=== PATIENT | male | born 1990 | race Caucasian/White ===

== ENCOUNTER 2021-10-26 14:08 | Emergency (ER) | payer OTHER, SELFPAY ==
[2021-10-26 14:18] VITALS: BP 135/81; PULSE 71; RESP 16; TEMP 36.6; O2SAT 99
[2021-10-26 14:19] VITALS: BP 135/81; PULSE 71; RESP 16; TEMP 36.6; O2SAT 99
--- NOTE | 2021-10-26 14:35 | ED.URI ---
HPI - URI/Sore Throat General Chief Complaint: Upper Respiratory Infection Stated Complaint: Rt Eye Irritation,Congestion,Cough,Headache Time Seen by Provider: 10/26/21 14:35 Source: patient Mode of arrival: ambulatory Limitations: no limitations History of Present Illness HPI Narrative: Hemal Moreno is a 31 yo male with no PMH who comes complaining of sinus drainage for 2 to 3 days his vital signs are stable and he is afebrile. He states he has dark green mucous, that he gets this once a month, and usually gets antibiotics from his primary care physician; he is going to an ENT soon; he also is complaining of right eye discharge with thick goopy discharge states is girlfriend's children had pinkeye Related Data Home Medications Medication Instructions Recorded Confirmed azelastine 2 spray INTRANASAL PRN PRN 10/26/21 10/26/21 Allergies Allergy/AdvReac Type Severity Reaction Status Date / Time amoxicillin AdvReac Mild Hives Verified 10/26/21 14:29 Review of Systems Review of Systems: CONSTITUTIONAL: Denies fever, chills, sweats. Subjective report of symptoms of congestion,eye discharge and sinus drainage EYES: Denies visual changes, redness, R discharge. ENT: Denies rhinorrhea,states has had sinus congestion w discharge, sore throat, otalgia. CARDIOVASCULAR: Denies chest pain, palpitations, edema. RESPIRATORY: Denies dyspnea, wheezing, cough GASTROINTESTINAL: Denies abdominal pain, nausea, vomiting, diarrhea. GENITOURINARY: Denies dysuria, hematuria, abnormal discharge SKIN: Denies rash or itching. NEUROLOGIC: Denies numbness, or focal weakness. PSYCHIATRIC: Denies anxiety or depression. PMFSH Past Medical History Medical History No acute medical problems Social History Social History (Updated 10/26/21 @ 14:43 by Claudia Garcia CNP) Smoking status: Never smoker Alcohol intake: current Comments At time of signature, I agree with nursing past medical, surgical, social and family history. There is no relevant family history pertinent to the presenting complaint. Exam Narrative: GENERAL: This is a well-nourished, well-developed patient, in no distress. HEAD: normocephalic, atraumatic. EYES: Sclera clear/white. Vision is grossly intact. No injection of conjunctiva on left or right EARS: External ears normal, auditory canals clear and without drainage, TMs normal without perforation. Hearing grossly intact. NOSE: External nose normal without nasal discharge, nares without redness, no rhinorrhea. THROAT: Mucous membranes moist, posterior pharynx pink with clear drainage NECK: Neck supple, non-tender CARDIOVASCULAR: Regular rate and rhythm without murmurs, gallops, or rubs. RESPIRATORY: Clear to auscultation. Breath sounds equal bilaterally. No wheezes, rales, or rhonchi. GASTROINTESTINAL: Not done SKIN: warm, intact with no suspicious lesions or rash, good texture and turgor. NEURO: awake, alert, and oriented to person, place and time. There were no obvious focal neurologic abnormalities. Steady gait EXTREMITIES: Normal range of motion. BACK: No complaints of pain Course Course Emergency Course: Patient comes with complaints of sinus drainage x2 to 3 days and eye drainage this morning that he states his eye was glued shut Patient's eyes are clear with no injection bone is on his aches insistence given antibiotic eyedrops Given steroids and told to start on Zyrtec or Tati [id number] patient wants antibiotics given that he has no objective symptoms, no fever, I opted to only treat as viral origin Level of Care: Express Care Visit Vital Signs Vital signs: Vital Signs Temperature 97.8 F 10/26/21 14:18 Pulse Rate 71 10/26/21 14:18 Respiratory Rate 16 10/26/21 14:18 Blood Pressure 135/81 10/26/21 14:18 Pulse Oximetry 99 10/26/21 14:18 Temperature 97.8 F 10/26/21 14:19 Pulse Rate 71 10/26/21 14:19 Respiratory Rate 16
== END 2021-10-26 14:52 | disposition home or self-care (01) ==
PROVIDERS: Emergency Provider Nurse Practitioner; PCP Physician Assistant
DX: J01.10 Acute frontal sinusitis, unspecified (principal); H10.9 Unspecified conjunctivitis; Z86.16 Personal history of COVID-19
CPT/HCPCS: 99203; G0463

== ENCOUNTER 2022-09-29 13:56 | Outpatient (CLI) | payer OTHER, SELFPAY ==
--- NOTE | 2022-09-29 | ECHO_ITS ---
Patient Info Name: Hemal Moreno Age: 32 years : 1990 Gender: Male Ht: 70 in Wt: 195 lbs BSA: 2.11 m2 HR: 75 bpm BP: 136 / 92 mmHg Heart Rhythm: Sinus Rhythm Exam Date: 09/29/2022 2:13 PM Exam Location: [facility] Patient Status: Outpatient Admit Date: 09/29/2022 Staff Ordering Physician: MatildeLamar PA-C Bandoleer Packer: Mitesh Galo, EDY, RT Attending Provider: GlenLamar PA-C Exam Type: CA echo doppler color flow Study Info Indications - MCKEON R06.09 - Other forms of dyspnea Complete two-dimensional, color flow and Doppler transthoracic echocardiogram is performed. Strain analysis performed. Summary 1. Complete two-dimensional, color flow and Doppler transthoracic echocardiogram is performed. 2. Left ventricular chamber dimension is normal. 3. Left ventricular systolic function is normal, estimated at 60-65%. 4. There is mildly increased left ventricular wall thickness. 5. The left ventricular diastolic function is grade I diastolic dysfunction. 6. Global longitudinal strain is normal at -20 %. 7. Right ventricular chamber dimension is mildly enlarged. 8. Right ventricular systolic function is normal. 9. Right atrial chamber dimension is mildly enlarged. 10. The mitral valve annulus is moderately calcified. 11. There is trace mitral valve regurgitation. 12. There is trace tricuspid valve regurgitation. 13. There is trace pulmonic regurgitation. Left Ventricle Left ventricular chamber dimension is normal. Left ventricular systolic function is normal, estimated at 60-65%. There is mildly increased left ventricular wall thickness. The left ventricular diastolic function is grade I diastolic dysfunction. Global longitudinal strain is normal at -20 %. Right Ventricle Right ventricular chamber dimension is mildly enlarged. Right ventricular systolic function is normal. Left Atria Left atrial chamber dimension is normal. Right Atria Right atrial chamber dimension is mildly enlarged. Atrial Septum Intact interatrial septum visualized by color flow imaging. Aortic Valve The aortic valve is trileaflet. There is no aortic valve stenosis. There is no aortic valve regurgitation. Pulmonic Valve The pulmonic valve is not well visualized. There is trace pulmonic regurgitation. Mitral Valve The mitral valve has normal leaflets. There is no mitral valve stenosis. There is trace mitral valve regurgitation. The mitral valve annulus is moderately calcified. Tricuspid Valve There is trace tricuspid valve regurgitation. Pericardium/Pleural The pericardium appears normal. Aorta The aortic root size at the sinus of Valsalva is normal. Left Ventricular Outflow Tract Name Value Normal LVOT 2D LVOT Diameter 2.0 cm LVOT Doppler LVOT Peak Gradient 4 mmHg LVOT Mean Gradient 2 mmHg LVOT VTI 20 cm LVOT VTI/AV VTI Ratio 0.8 LVOT Stroke Volume 64 ml LVOT CO 4.5 l/min
== END 2022-09-29 13:57 | disposition home or self-care (01) ==
PROVIDERS: PCP Physician Assistant; Visit Provider Physician Assistant
DX: R06.09 Other forms of dyspnea (principal); I51.7 Cardiomegaly
CPT/HCPCS: 93306

== ENCOUNTER 2024-05-04 09:32 | Day surgery (SDC) | payer OTHER, SELFPAY ==
[2024-03-25 14:39] VITALS: BMI 28.8
[2024-04-12 08:19] VITALS: BMI 28.8
[2024-04-20 11:07] VITALS: BMI 28.8
--- NOTE | 2024-05-04 07:01 | WPDANESEPPF ---
Anes - Initial Pre Proc Eval Procedure: Operation Date: 05/04/24 11:30 Proposed Procedures p Diagnostic Colonoscopy - Anthony Lentz MD Date/Time: 05/04/24 07:01 Surgeon: Anthony Lentz MD Pre Op Diagnosis: Blood in Stool Patient Data Age: 34 Gender: M Height: 1.78 m Weight: 91 kg Allergies Allergy/AdvReac Type Severity Reaction Status Date / Time amoxicillin AdvReac Mild Hives Verified 05/04/24 10:22 Home Medications Medication Instructions Recorded Confirmed Type Adult One Daily Multivitamin 1 tab-cap PO DAILY 04/12/24 05/04/24 History clomiphene citrate 550 mg PO EVERY OTHER DAY 04/12/24 05/04/24 History montelukast 10 mg tablet 10 mg PO DAILY 04/12/24 05/04/24 History semaglutide (weight loss) 1 mg/0.5 mg subcut 04/20/24 History mL subcutaneous pen injector (Wegovy) Patient hx anesthesia problems: none Family hx anesthesia problems: none Results Review: All pre-operative results and documents have been reviewed as part of the pre-operative evaluation. [facility] Past Medical History Medical History No acute medical problems Social History Social History (Updated 10/26/21 @ 14:43 by Claudia Garcia, MARIBETH) Smoking status: Never smoker Alcohol intake: current Alcohol use details: rarely Substance use: never Substance use type: does not use Living arrangements: with family Spiritual care concerns: No Anes - Eval Final PreProcedure Day of Procedure 05/04/24 07:01 Patient weight: overweight Heart: regular rate and rhythm Lungs: clear to auscultation Airway: Mallampati scale class II Neurological: alert and oriented Last oral intake: >/= 8 hours ASA classification: I Emergent: no Anesthetic plan: proceed Anesthesia type and monitoring: general GIVS and standard monitoring Results Review: All pre-operative results and documents have been reviewed as part of the pre-operative evaluation. Informed Consent: The patient's anesthetic plan and its attendant risks and benefits were discussed with the patient/family/POA. Questions were solicited and answers provided to the satisfaction of the patient/family/POA.
[2024-05-04] MEDS: LACTATED RINGERS 1,000 ML 150 ML IV CONT (10:33)
[2024-05-04 10:36] VITALS: BP 122/73; PULSE 74; RESP 18; TEMP 36.8; O2SAT 100
--- NOTE | 2024-05-04 10:54 | PM.HPGS ---
History of Present Illness History of Present Illness Consent: Risks, benefits, and alternatives have been discussed and questions answered. Patient agrees to proceed with procedure. Chief complaint: Blood in Stool Narrative: Hemal Moreno is a 34 year old male presents for colonoscopy. Patient has noticed tendency towards constipation. This has been most noticeable after over the last year to year and a half. Patient has noticed bright red blood per rectum. This intensified when he strains and has harder stools. Is any weight loss. His family history is noncontributory. Bleeding however has been intermittent and persistent over the last 1 year. Review of Systems Review of Systems: All systems reviewed & are unremarkable except as noted in HPI and below PMFSH Past Medical History Medical History No acute medical problems Social History Social History (Updated 10/26/21 @ 14:43 by Claudia Garcia, MARIBETH) Smoking status: Never smoker Alcohol intake: current Alcohol use details: rarely Substance use: never Substance use type: does not use Living arrangements: with family Spiritual care concerns: No Meds Home Medications and Allergies Home Medications Medication Instructions Recorded Confirmed Type Adult One Daily Multivitamin 1 tab-cap PO DAILY 04/12/24 05/04/24 History clomiphene citrate 550 mg PO EVERY OTHER DAY 04/12/24 05/04/24 History montelukast 10 mg tablet 10 mg PO DAILY 04/12/24 05/04/24 History semaglutide (weight loss) 1 mg/0.5 mg subcut 04/20/24 History mL subcutaneous pen injector (Wegovy) Allergies Allergy/AdvReac Type Severity Reaction Status Date / Time amoxicillin AdvReac Mild Hives Verified 05/04/24 10:22 Vital Signs Vital Signs - 24 hr 05/04/24 10:36 Temperature 98.2 F Pulse Rate 74 Respiratory Rate 18 Blood Pressure 122/73 Pulse Oximetry 100 Oxygen Delivery Room Air Exam Narrative: Physical exam reveals patient to be alert. Vital signs stable. HEENT exam is unremarkable. Patient is anicteric. Lungs are clear to auscultation and percussion without murmur or extra sounds. Abdomen bowel sounds are present soft nontender with no organomegaly. Digital external rectal exam normal. Assessment and Plan Assessment and plan (1) Blood in stool: Code(s): K92.1 - Melena Status: Acute Assessment and Plan: Patient with ongoing intermittent bright red blood per rectum. Plan for stool softeners. Evaluation with colonoscopy today. Further recommendations may be given after endoscopy. (2) Constipation: Code(s): K59.00 - Constipation, unspecified Status: Acute Assessment and Plan: Patient is ongoing constipation. This may be related to medications. Suggest stool softener such as Colace or Metamucil. Consider MiraLax as needed to control bowel habits.
[2024-05-04 11:16] VITALS: BP 99/60; PULSE 67; RESP 18; O2SAT 98
[2024-05-04 11:26] VITALS: BP 103/61; PULSE 61; RESP 16; O2SAT 99
[2024-05-04 11:36] VITALS: BP 105/62; PULSE 63; RESP 16; O2SAT 100
--- NOTE | 2024-05-04 12:33 | WPDANESPN ---
Anes - Prog Note Post-Op Date/Time: 05/04/24 12:33 Cardiovascular status: normal Respiratory status: normal Airway patency: baseline Mental status: baseline Post-Op hydration status: normal Vital Signs: Last Vital Signs Temp 36.8 C 05/04/24 10:36 Pulse 63 05/04/24 11:36 Resp 16 05/04/24 11:36 BP 105/62 05/04/24 11:36 Pulse Ox 100 05/04/24 11:36 O2 Del Method Room Air 05/04/24 11:36 Pain Score (VAS): 0 I/O: Intake & Output 05/03/24 05/04/24 05/04/24 23:59 07:59 15:59 Intake Total 600 Balance 600 Post-procedural complaints: none Patient Feedback: Patient satisfied with anesthetic care. Other Findings: Patient vital signs back to baseline. Patient denies nausea and vomiting. Patient's pain under control. Patient OK for discharge.
== END 2024-05-04 11:53 | disposition home or self-care (01) ==
PROVIDERS: PCP Physician Assistant; Visit Provider Internal Medicine Gastroenterology
PROC: 0DJD8ZZ Inspection of Lower Intestinal Tract, Via Natural or Artificial Opening Endoscopic (ICD-10-PCS; CPT 45378; principal; 2024-05-04 11:30)
DX: K92.1 Melena (principal); K62.5 Hemorrhage of anus and rectum; K64.8 Other hemorrhoids
CPT/HCPCS: 45378